=== PATIENT | male | born 1995 | race Caucasian/White ===

== ENCOUNTER 2019-12-19 11:25 | Emergency (ER) | payer MEDICAID ==
[~2019-12-19] VITALS: Ht 185.4 cm; Wt 93.6 kg
[2019-12-19 11:44] VITALS: BP 111/55
== END 2019-12-19 12:39 | disposition home or self-care (01) ==
LOC: EMS 11:28
DX: R19.7 Diarrhea, unspecified (principal); Z11.59 Encounter for screening for other viral diseases
CPT/HCPCS: 99283; U0003